=== PATIENT | female | born 1950 | race American Indian/Alaskan Native ===

== ENCOUNTER 2024-11-05 08:05 | Day surgery (SDC) | payer MEDICARE, OTHER ==
[2024-11-05] MEDS ORDERED: Dexamethasone 4 MG/ML SDV IV ONE (08:06)
[2024-11-05] MEDS ORDERED: Sodium Chloride 0.9% 10 ML Syringe IV ONE (08:06)
[2024-11-05] MEDS ORDERED: Midazolam 1 MG/ML 2 ML SDV IV ONE (08:06)
[2024-11-05] MEDS: Proparacaine 0.5% Ophth Soln 15 ML Bottle EYELF ONE ×2 (09:25→11:20)
[2024-11-05] MEDS: Moxifloxacin 0.5% Ophth Soln 3 ML Bottle EYELF ONE (09:26)
[2024-11-05] MEDS: Povidone-Iodine 5% Sterile Ophth Soln 30 ML Bottle EYELF ONE ×2 (09:26→11:21)
[2024-11-05] MEDS: Phenylephrine 10% Ophth Soln 5 ML Bot EYELF ONE (09:28)
[2024-11-05] MEDS: Tropicamide 1% Ophth Soln 15 ML Bottle EYELF ONE (09:29)
[2024-11-05] MEDS: Timolol Maleate 0.5% Ophth Soln 5 ML Bottle EYELF ONE (09:30)
[2024-11-05] MEDS: Cataract Ophth Solution EYELF ONE (09:30)
[2024-11-05] MEDS ORDERED: Sodium Chloride 0.9% 10 ML Syringe FLUSH PRN (10:00)
[2024-11-05] MEDS ORDERED: VANCOmycin 500 MG SDV EYELF ONE (10:00)
[2024-11-05] MEDS ORDERED: Ondansetron 4 MG/2 ML SDV IVPUSH PRN (10:00)
[2024-11-05] MEDS ORDERED: Acetaminophen 325 MG Tab PO PRN (10:00)
[2024-11-05] MEDS ORDERED: Acetaminophen/Codeine 300-30 MG Tab PO PRN (10:00)
[2024-11-05] MEDS ORDERED: Lidocaine 1% 30 ML SDV INJECT ONE (10:00)
[2024-11-05] MEDS: Diclofenac Sodium 0.1% Ophth Soln 5 ML Bottle EYELF ONE (11:21)
[2024-11-05] MEDS: Lidocaine 1% 30 ML SDV INJECT ONE (11:22)
[2024-11-05] MEDS: Dexamethasone/Neomycin/Polymyxin B Ophth Oint 3.5 GM Tube EYELF ONE (11:22)
[2024-11-05] MEDS: VANCOmycin 500 MG SDV EYELF ONE (11:23)
== END 2024-11-05 12:16 | disposition home or self-care (01) ==
LOC: DL.SDS 08:05
PROVIDERS: ATTEND Ophthalmology
DX: H25.812 Combined forms of age-related cataract, left eye (principal); E03.9 Hypothyroidism, unspecified; K21.9 Gastro-esophageal reflux disease without esophagitis; E66.9 Obesity, unspecified; Z88.0 Allergy status to penicillin; Z88.2 Allergy status to sulfonamides; Z88.8 Allergy status to other drugs, medicaments and biological substances; Z79.890 Hormone replacement therapy; Z79.899 Other long term (current) drug therapy; Z87.891 Personal history of nicotine dependence
CPT/HCPCS: 66984; A9270; J2003; J3370; 00142; 99100; J1100; J2250; J3490; V2787-GY

== ENCOUNTER 2024-11-19 08:40 | Day surgery (SDC) | payer MEDICARE, OTHER ==
[2024-11-19] MEDS ORDERED: Midazolam 1 MG/ML 2 ML SDV IV ONE (08:41)
[2024-11-19] MEDS ORDERED: Sodium Chloride 0.9% 10 ML Syringe IV ONE (08:41)
[2024-11-19] MEDS ORDERED: Dexamethasone 4 MG/ML SDV IV ONE (08:41)
[2024-11-19] MEDS: Moxifloxacin 0.5% Ophth Soln 3 ML Bottle EYERT ONE (09:19)
[2024-11-19] MEDS: Proparacaine 0.5% Ophth Soln 15 ML Bottle EYERT ONE ×2 (09:19→10:06)
[2024-11-19] MEDS: Povidone-Iodine 5% Sterile Ophth Soln 30 ML Bottle EYERT ONE ×2 (09:20→10:06)
[2024-11-19] MEDS: Phenylephrine 10% Ophth Soln 5 ML Bot EYERT PRN (09:22)
[2024-11-19] MEDS: Tropicamide 1% Ophth Soln 15 ML Bottle EYERT ONE (09:22)
[2024-11-19] MEDS: Cataract Ophth Solution EYERT ONE (09:24)
[2024-11-19] MEDS: Timolol Maleate 0.5% Ophth Soln 5 ML Bottle EYERT ONE (09:25)
[2024-11-19] MEDS: Lidocaine 1% 30 ML SDV ONE (10:13)
[2024-11-19] MEDS: VANCOmycin 500 MG SDV EYERT ONE (10:13)
[2024-11-19] MEDS ORDERED: Lidocaine 1% 30 ML SDV INJECT ONE (10:15)
[2024-11-19] MEDS ORDERED: Acetaminophen 325 MG Tab PO PRN (10:15)
[2024-11-19] MEDS ORDERED: VANCOmycin 500 MG SDV EYERT ONE (10:15)
[2024-11-19] MEDS ORDERED: Acetaminophen/Codeine 300-30 MG Tab PO PRN (10:15)
[2024-11-19] MEDS ORDERED: Ondansetron 4 MG/2 ML SDV IVPUSH PRN (10:15)
[2024-11-19] MEDS: Apraclonidine 0.5% Ophth Soln 5 ML Bot EYERT ONE (10:22)
[2024-11-19] MEDS: Diclofenac Sodium 0.1% Ophth Soln 5 ML Bottle EYERT ONE (10:22)
[2024-11-19] MEDS: Dexamethasone/Tobramycin 0.1-0.3% Ophth Oint 3.5 GM Tube EYERT ONE (10:22)
== END 2024-11-19 11:05 | disposition home or self-care (01) ==
LOC: DL.SDS 08:40
PROVIDERS: ATTEND Ophthalmology
DX: H25.811 Combined forms of age-related cataract, right eye (principal)
CPT/HCPCS: 66984; A9270; J2003; J3370; J1100; J2250; J3490